=== PATIENT | female | born 1975 | race Caucasian/White ===

== ENCOUNTER 2022-05-22 07:47 | Day surgery (SDC) | payer BC ==
[2022-05-22] MEDS ORDERED: fentaNYL 50 MCG/ML SDV ONE (07:51)
[2022-05-22] MEDS ORDERED: Midazolam 1 MG/ML 2 ML SDV ONE (07:51)
[2022-05-22] MEDS ORDERED: Propofol 200 MG/20 ML SDV ONE ×2 (07:51→10:15)
[2022-05-22] MEDS ORDERED: Lactated Ringers 1,000 ML IV SCH (08:30)
== END 2022-05-22 11:35 | disposition home or self-care (01) ==
LOC: JP.SDS 07:47
PROVIDERS: ATTEND Student in an Organized Health Care Education/Training Program
DX: K63.5 Polyp of colon (principal); K57.30 Diverticulosis of large intestine without perforation or abscess without bleeding
CPT/HCPCS: 45380; 88305; J2250; J2704; J3010; J7120